=== PATIENT | male | born 1960 | race Caucasian/White ===

== ENCOUNTER → 2016-12-31 | Outpatient (CLI) | payer MEDICARE, MEDICAID ==
[2016-12-31 09:05] LABS: BASO % 0.5 % (0.0-1.0); EOS % 0.7 % (0.0-3.0); LYMPH % 26.5 % (24.0-44.0); MEAN CORPUSCULAR HEMOGLOBIN 31.1 pg (27.0-33.0); MEAN CORPUSCULAR HGB CONC 32.6 g/dl (32.0-36.5); MEAN CORPUSCULAR VOLUME 95.2 fl (80.0-96.0); MONO # 0.4 K/mm3 (0.0-0.8); MONO % 4.8 % (0.0-5.0); NEUTROPHILS # 5.1 K/mm3 (1.8-7.7); RED CELL DISTRIBUTION WIDTH 12.3 % (11.5-14.5); WHITE BLOOD COUNT 7.7 K/mm3 (4.0-10.0)
[2016-12-31 09:45] LABS: ALBUMIN 3.8 GM/DL (3.2-5.2); ALBUMIN/GLOBULIN RATIO 1.23 (1.00-1.93); ALKALINE PHOSPHATASE 65 U/L (45-117); ALT/SGPT 43 U/L (12-78); ANION GAP 6 MEQ/L (8-16); AST/SGOT 28 U/L (15-37); BILIRUBIN,TOTAL 0.6 MG/DL (0.2-1.0); BLOOD UREA NITROGEN 10 MG/DL (7-18); CALCIUM LEVEL 9.2 MG/DL (8.5-10.1); CARBON DIOXIDE LEVEL 30 MEQ/L (21-32); CHLORIDE LEVEL 102 MEQ/L (98-107); CHOLESTEROL LEVEL 241 MG/DL (<200); CREATININE FOR GFR 0.86 MG/DL (0.70-1.30); GLOMERULAR FILTRATION RATE > 60.0 (>56); GLUCOSE, FASTING 104 MG/DL (70-105); POTASSIUM SERUM 4.7 MEQ/L (3.5-5.1); SODIUM LEVEL 138 MEQ/L (136-145); TOTAL PROTEIN 6.9 GM/DL (6.4-8.2); TRIGLYCERIDES LEVEL 64 MG/DL (<150)
== END ==
LOC: M LAB 08:28
PROVIDERS: ATTEND Physician Assistant Medical
DX: Z79.899 Other long term (current) drug therapy (principal); E55.9 Vitamin D deficiency, unspecified; I10 Essential (primary) hypertension

== ENCOUNTER → 2017-03-09 | Outpatient (CLI) | payer MEDICARE, MEDICAID ==
[2017-03-09 10:43] LABS: ANION GAP 6 MEQ/L (8-16); BLOOD UREA NITROGEN 13 MG/DL (7-18); CALCIUM LEVEL 9.4 MG/DL (8.5-10.1); CARBON DIOXIDE LEVEL 30 MEQ/L (21-32); CHLORIDE LEVEL 102 MEQ/L (98-107); CREATININE FOR GFR 0.92 MG/DL (0.70-1.30); GLOMERULAR FILTRATION RATE > 60.0 (>56); GLUCOSE, FASTING 92 MG/DL (70-105); POTASSIUM SERUM 4.4 MEQ/L (3.5-5.1); SODIUM LEVEL 138 MEQ/L (136-145)
--- NOTE | 2017-03-09 11:08 | REP ---
REASON: manager terminal pharmacologic therapy. COMPARISON: 11/26/2014. FINDINGS: The superior mediastinal structures are midline. The cardiac silhouette is unremarkable in size, shape, and position. The diaphragmatic surfaces of the lungs are regular, and the costophrenic angles are clear. The pulmonary villanueva are clear. The imaged osseous structures are intact. IMPRESSION: There is no acute cardiopulmonary disease. No significant change from the prior exam. Signed by Jhonny Pereira DO 03/09/2017 01:45 P
== END ==
LOC: M LAB 09:20
PROVIDERS: ATTEND Orthopaedic Surgery
DX: Z79.899 Other long term (current) drug therapy (principal)

== ENCOUNTER → 2018-07-11 | Outpatient (CLI) | payer MEDICARE, MEDICAID ==
[2018-07-11 11:14] LABS: BASO # 0.1 10^3/uL (0.0-0.2); BASO % 0.7 % (0.0-1.0); EOS # 0.1 10^3/uL (0.0-0.50); EOS % 0.7 % (0.0-3.0); HEMOGLOBIN 15.8 g/dl (13.5-17.5); IMMATURE GRANULOCYTE % 0.3 % (0-3.0); LYMPH # 2.4 10^3/uL (1.5-4.5); MEAN CORPUSCULAR HEMOGLOBIN 31.9 pg (27.0-33.0); MEAN CORPUSCULAR HGB CONC 34.3 g/dl (32.0-36.5); MEAN CORPUSCULAR VOLUME 92.9 fl (80.0-96.0); MONO # 0.5 10^3/uL (0.0-0.8); MONO % 6.4 % (0.0-5.0); NEUTROPHILS # 4.3 10^3/uL (1.8-7.7); NEUTROPHILS % 58.9 % (36.0-66.0); PLATELET COUNT, AUTOMATED 277 10^3/uL (150-450); RED BLOOD COUNT 4.95 10^6/uL (4.30-6.10); RED CELL DISTRIBUTION WIDTH 12.4 % (11.5-14.5); WHITE BLOOD COUNT 7.3 10^3/uL (4.0-10.0)
[2018-07-11 17:49] LABS: ALBUMIN 3.8 GM/DL (3.2-5.2); ALBUMIN/GLOBULIN RATIO 1.15 (1.00-1.93); ALKALINE PHOSPHATASE 70 U/L (45-117); ALT/SGPT 77 U/L (12-78); ANION GAP 7 MEQ/L (8-16); AST/SGOT 47 U/L (7-37); BILIRUBIN,TOTAL 0.7 MG/DL (0.2-1.0); BLOOD UREA NITROGEN 8 MG/DL (7-18); CALCIUM LEVEL 9.2 MG/DL (8.5-10.1); CARBON DIOXIDE LEVEL 28 MEQ/L (21-32); CHLORIDE LEVEL 102 MEQ/L (98-107); CHOLESTEROL LEVEL 242 MG/DL (<200); CHOLESTEROL RISK RATIO 3.457 (<5); CREATININE FOR GFR 0.91 MG/DL (0.70-1.30); GLOMERULAR FILTRATION RATE > 60.0 (>56); GLUCOSE, FASTING 92 MG/DL (70-100); HDL CHOLESTEROL 70 MG/DL (>40); LDL CHOLESTEROL 157 MG/DL (<100); NON-HDL-C 172 MG/DL; POTASSIUM SERUM 4.7 MEQ/L (3.5-5.1); SODIUM LEVEL 137 MEQ/L (136-145); TOTAL PROTEIN 7.1 GM/DL (6.4-8.2); TRIGLYCERIDES LEVEL 75 MG/DL (<150)
== END ==
LOC: M LAB 10:34
DX: I11.9 Hypertensive heart disease without heart failure (principal)
CPT/HCPCS: 80053

== ENCOUNTER → 2019-07-13 | Outpatient (CLI) | payer MEDICARE, MEDICAID ==
--- NOTE | 2019-07-13 14:50 | REP ---
REASON: Assess inguinal regions. Multiple ultrasonographic images of the inguinal region was obtained bilaterally and shows no evidence of a mass or other abnormality. When scanning the right inguinal region note was made of a large right hydrocele. For further information review the scrotal ultrasound report of 07/13/2019. Electronically Signed by Jhonny Pereira DO 07/13/2019 04:21 P
--- NOTE | 2019-07-13 21:36 | REP ---
SCROTAL ULTRASOUND: Real-time sonographic evaluation of the scrotum and contents performed. Testicles are normal in size and echotexture, with no mass or torsion. Blood flow is seen in each testicle with duplex Doppler evaluation. Right testicle measures 4.2 x 2.7 x 2.1 cm and left testicle 4.3 x 2.8 x 2.1 cm. Right epididymis is not well visualized due to very large right hydrocele. Left epididymis appears unremarkable. The right hydrocele measures approximately 12.4 x 5.1 x 5.5 cm. There is a small cyst in the right testicle measuring 4 x 5 x 6 mm. There is a very small left hydrocele. IMPRESSION: Very large right hydrocele. No testicular mass or torsion. Electronically Signed by Chang Craig MD 07/14/2019 03:34 P
== END ==
LOC: M RAD 10:44
PROVIDERS: ATTEND Surgery
DX: D40.11 Neoplasm of uncertain behavior of right testis (principal)

== ENCOUNTER → 2019-08-18 | Outpatient (CLI) | payer MEDICARE, MEDICAID ==
[2019-08-18 09:09] LABS: HEMATOCRIT 46.7 % (42.0-52.0); HEMOGLOBIN 15.2 g/dl (13.5-17.5); MEAN CORPUSCULAR HEMOGLOBIN 31.3 pg (27.0-33.0); MEAN CORPUSCULAR HGB CONC 32.5 g/dl (32.0-36.5); MEAN CORPUSCULAR VOLUME 96.3 fl (80.0-96.0); PLATELET COUNT, AUTOMATED 296 10^3/uL (150-450); RED BLOOD COUNT 4.85 10^6/uL (4.30-6.10); WHITE BLOOD COUNT 9.6 10^3/uL (4.0-10.0)
--- NOTE | 2019-08-18 09:21 | REP ---
Clinical: Preoperative assessment . Comparison: 03/09/2017 . Technique: PA and lateral. Findings: The mediastinum and cardiac silhouette are normal. The lung villanueva demonstrate chronic changes without acute consolidation, effusion, or pneumothorax. The skeletal structures are intact and normal. Impression: 1. No acute cardiopulmonary process. Electronically Signed by Deshawn Gordillo MD 08/18/2019 09:14 A
[2019-08-18 09:27] LABS: INR 1.04; PROTHROMBIN TIME 13.3 SECONDS (11.8-14.0)
[2019-08-18 09:28] LABS: PARTIAL THROMBOPLASTIN TIME 23.9 SECONDS (25.0-38.4)
[2019-08-18 09:32] LABS: BLOOD UREA NITROGEN 8 MG/DL (7-18); CALCIUM LEVEL 9.7 MG/DL (8.5-10.1); CARBON DIOXIDE LEVEL 30 MEQ/L (21-32); CHLORIDE LEVEL 104 MEQ/L (98-107); CREATININE FOR GFR 0.91 MG/DL (0.70-1.30); GLOMERULAR FILTRATION RATE > 60.0 (>56); GLUCOSE, FASTING 90 MG/DL (70-100); POTASSIUM SERUM 4.3 MEQ/L (3.5-5.1); SODIUM LEVEL 141 MEQ/L (136-145)
--- NOTE | 2019-08-18 22:19 | ECGEPIP ---
[facility] Test Date: 2019-08-18 Pat Name: SHARON QUICK Department: Room: - Gender: Male [employer]: MODE : 1960 Requested By: Walt RICHADRS Order Number: [id number] Reading MD: Dario Esposito Measurements Intervals [place] Rate: 106 P: 46 NE: 138 QRS: 32 QRSD: 93 T: 47 QT: 327 QTc: 435 Interpretive Statements SINUS TACHYCARDIA NONSPECIFIC T-WAVE ABNORMALITY ABNORMAL RHYTHM ECG 1 TRACING IN THE SYSTEM ON 12/16/2015 AT 10:23 A.M. AND IT REVEALED SINUS BRADYCARDIA AT 49 BEATS PER MINUTE Electronically Signed on 08-18-2019 22:19:16 EST by Dario Esposito
== END ==
LOC: M LAB 08:46
PROVIDERS: ATTEND Nurse Practitioner Family
DX: Z01.818 Encounter for other preprocedural examination (principal)

== ENCOUNTER 2019-08-27 08:37 | Day surgery (SDC) | payer MEDICARE, MEDICAID ==
[~2019-08-27] VITALS: Ht 170.2 cm; Wt 78.5 kg
[~2019-08-27 08:37] MED LIST: ADVA230A INH; COMBAER6 INH; HYDR25TAB PO; LISI-538 PO; MAPA500C PO; ceFAZolin SOD 2 GM in IV 1 EA IV ONE
[2019-08-27] MEDS ORDERED: BISO10TA10 PO (09:34)
[2019-08-27] MEDS ORDERED: AMLO25TA PO (09:34)
[2019-08-27] MEDS ORDERED: ATOR80TA59 PO (09:34)
[2019-08-27] MEDS ORDERED: VALS160T3 PO (09:34)
[2019-08-27] MEDS ORDERED: MIDAZOLAM INJ 2 MG/2 ML VIAL (J2250) As Ordered ONE (10:00)
[2019-08-27] MEDS ORDERED: fentaNYL 100 MCG/2 ML INJECTION (J3010) As Ordered ONE ×3 (10:00→11:36)
[2019-08-27] MEDS ORDERED: LIDOCAINE 2% INJ 100 MG/5 ML SYRINGE As Ordered ONE (10:00)
[2019-08-27] MEDS ORDERED: PROPOFOL 200 MG/20 ML VIAL As Ordered ONE ×2 (10:00→10:51)
[2019-08-27] MEDS ORDERED: LIDOCAINE 1% MDV 20ML VIAL As Ordered ONE (10:23)
[2019-08-27] MEDS ORDERED: BUPIVACAINE HCL 0.25% 10 ML VIAL As Ordered ONE (10:23)
[2019-08-27] MEDS ORDERED: BACITRACIN OINT 30GM As Ordered ONE (10:23)
[2019-08-27] MEDS ORDERED: dexameTHASONE 4 MG/ML 1ML VIAL (J1100) As Ordered ONE ×2 (10:53→12:36)
[2019-08-27] MEDS ORDERED: GLYCOPYRROLATE INJ 0.2 MG/ML 2 ML VIAL As Ordered ONE (10:59)
[2019-08-27] MEDS ORDERED: PHENYLephrine HCL 500 MCG/5 ML (100MCG/ML) SYRINGE (J2370) As Ordered ONE (11:02)
[2019-08-27] MEDS ORDERED: KETOROLAC 60 MG/2 ML VIAL (J1885) As Ordered ONE (11:06)
[2019-08-27] MEDS ORDERED: ONDANSETRON 4MG/2ML VIAL (J2405) As Ordered ONE (11:06)
[2019-08-27] MEDS ORDERED: VASOPRESSIN INJ 20 UNITS/ML VIAL As Ordered ONE (11:22)
[2019-08-27] MEDS ORDERED: ENDO5TAB PO (12:18)
[2019-08-27] MEDS ORDERED: PERCOCET 5MG/325MG TAB As Ordered ONE (12:31)
[2019-08-27] MEDS ORDERED: ONDANSETRON 4MG/2ML VIAL (J2405) IV PRN (12:45)
[2019-08-27] MEDS ORDERED: fentaNYL 100 MCG/2 ML INJECTION (J3010) IV PRN (12:45)
[2019-08-27] MEDS ORDERED: LR 1,000 ML IV SCH (12:45)
[2019-08-27] MEDS ORDERED: oxyCODONE 5MG TAB PO PRN (12:45)
--- NOTE | 2019-08-27 13:11 | RO ---
DATE OF PROCEDURE: 08/27/2019 PREPROCEDURE DIAGNOSIS: Right hydrocele. POSTPROCEDURE DIAGNOSIS: Right hydrocele. PROCEDURE: Right hydrocelectomy. SURGEON: Dr. Bj Smith CASTING CLEANER: None. ANESTHESIA: General. OPERATIVE INDICATIONS: This is a 59-year-old male with a large right hydrocele here for treatment. DESCRIPTION OF PROCEDURE: The patient was brought to the operating room and general anesthesia was induced. Prophylactic antibiotics were infused. He was then placed in supine position and prepped and draped in the usual sterile fashion. At this point, an approximately 4 cm transverse incision was made over the right hemiscrotum. We then dissected down to the scrotal wall layers. The testicle was then delivered outside of the right hemiscrotum while still inside the tunica vaginalis. The tunica vaginalis was then punctured and approximately 250 mL of simple clear fluid was drained from the hydrocele. The tunica vaginalis was then excised using electrocautery. We then oversewed the edges of the tunica vaginalis with a running 3-0 Vicryl suture. At this point, we checked for hemostasis and any areas of bleeding along the testicle and within the operative site was controlled with electrocautery. The testicle was then delivered back inside the right hemiscrotum in its normal anatomic position. At this point, the dartos muscles were closed with a running 2-0 Vicryl suture. The skin was closed with interrupted 2-0 chromic sutures. Dressings were then applied and this marked the conclusion of the procedure. The patient was then awakened from anesthesia and transported to the recovery room in stable condition. Estimated blood loss: 5 mL. Complications: None. Specimen: Right hydrocele sac. Plan: The patient will followup in the clinic in a few weeks for a postoperative visit.
[2019-08-27 13:30] VITALS: BP 166/73
[2019-08-27] MEDS ORDERED: PERCOCET 5MG/325MG TAB PO PRN (13:46)
== END 2019-08-27 13:30 | disposition home or self-care (01) ==
LOC: M SDC 08:37
PROVIDERS: ATTEND Urology
DX: N43.3 Hydrocele, unspecified (principal)
CPT/HCPCS: 55040; 88302; J0690; J1100; J2250; J2370; J2405; J3010

== ENCOUNTER 2020-03-23 08:49 | Emergency (ER) | payer MEDICARE, MEDICAID ==
[~2020-03-23] VITALS: Ht 170.2 cm; Wt 81.8 kg
[~2020-03-23 08:49] MED LIST changes: +AMLO25TA PO; +ATOR80TA59 PO; +BISO10TA14 PO; +ENDO5TAB PO; +VALS160T3 PO; -ceFAZolin SOD 2 GM in IV 1 EA IV ONE
--- NOTE | 2020-03-23 09:20 | REP ---
Clinical: Trauma. Technique: AP, lateral, bilateral oblique views of the left first digit. Findings: Transverse fracture through the distal phalanx with overlying soft tissue swelling. Impression: Transverse fracture through the distal phalanx. Electronically Signed by Deshawn Gordillo MD 03/23/2020 09:12 A
[2020-03-23 09:57] VITALS: BP 138/88
[2020-03-23] MEDS ORDERED: ACETAMINOPH W/CODEINE #3 TAB UD PO ONE (10:00)
== END 2020-03-23 10:35 | disposition home or self-care (01) ==
LOC: M ED 08:49
DX: S62.522A Displaced fracture of distal phalanx of left thumb, initial encounter for closed fracture (principal); W22.09XA Striking against other stationary object, initial encounter; I11.9 Hypertensive heart disease without heart failure; J44.9 Chronic obstructive pulmonary disease, unspecified; E78.5 Hyperlipidemia, unspecified; F17.200 Nicotine dependence, unspecified, uncomplicated; K40.90 Unilateral inguinal hernia, without obstruction or gangrene, not specified as recurrent; Z79.51 Long term (current) use of inhaled steroids; Z79.899 Other long term (current) drug therapy

== ENCOUNTER → 2022-06-22 | Outpatient (CLI) | payer OTHER, MEDICAID ==
[~2022-06-22] MED LIST changes: +HYDR-3490 PO; -HYDR25TAB PO; -LISI-538 PO; +LISI20TA33 PO
[2022-06-22 10:13] LABS: BASO # 0.1 10^3/uL (0.0-0.2); BASO % 0.8 % (0.0-1.0); EOS # 0.2 10^3/uL (0.0-0.5); EOS % 2.7 % (0.0-3.0); HEMATOCRIT 48.3 % (42.0-52.0); HEMOGLOBIN 15.2 g/dl (13.5-17.5); LYMPH # 3.4 10^3/uL (1.5-5.0); LYMPH % 38.3 % (24.0-44.0); MEAN CORPUSCULAR HEMOGLOBIN 30.6 pg (27.0-33.0); MEAN CORPUSCULAR HGB CONC 31.5 g/dl (32.0-36.5); MEAN CORPUSCULAR VOLUME 97.4 fl (80.0-96.0); MONO # 0.4 10^3/uL (0.0-0.8); MONO % 4.8 % (2.0-8.0); NEUTROPHILS # 4.7 10^3/uL (1.5-8.5); NEUTROPHILS % 53.2 % (36.0-66.0); PLATELET COUNT, AUTOMATED 319 10^3/uL (150-450); RED BLOOD COUNT 4.96 10^6/uL (4.30-6.10); WHITE BLOOD COUNT 8.8 10^3/uL (4.0-10.0)
[2022-06-22 10:54] LABS: BLOOD UREA NITROGEN 11 MG/DL (7-18); CALCIUM LEVEL 9.9 MG/DL (8.8-10.2); CARBON DIOXIDE LEVEL 29 MEQ/L (21-32); CHLORIDE LEVEL 105 MEQ/L (98-107); CHOLESTEROL LEVEL 230 MG/DL (<200); CHOLESTEROL RISK RATIO 4.181 (<5); CREATININE FOR GFR 0.91 MG/DL (0.70-1.30); GLOMERULAR FILTRATION RATE > 60.0 (>49); GLUCOSE, FASTING 98 MG/DL (70-100); HDL CHOLESTEROL 55 MG/DL (>40); LDL CHOLESTEROL 150 MG/DL (<100); NON-HDL-C 175 MG/DL; PHOSPHORUS LEVEL 4.2 MG/DL (2.5-4.9); POTASSIUM SERUM 4.3 MEQ/L (3.5-5.1); SODIUM LEVEL 139 MEQ/L (136-145); TRIGLYCERIDES LEVEL 126 MG/DL (<150)
[2022-06-23 17:07] LABS: PSA TOTAL 0.6 ng/mL (0.0-4.0)
== END ==
LOC: M LAB 08:46
PROVIDERS: ATTEND Internal Medicine Cardiovascular Disease
DX: I10 Essential (primary) hypertension (principal); Z12.5 Encounter for screening for malignant neoplasm of prostate; J44.9 Chronic obstructive pulmonary disease, unspecified; E78.5 Hyperlipidemia, unspecified

== ENCOUNTER 2023-02-18 17:33 | Emergency (ER) | payer OTHER, MEDICAID ==
[~2023-02-18] VITALS: Ht 170.2 cm; Wt 84.9 kg
[2023-02-18 17:59] VITALS: TEMP 98.1
[2023-02-18 18:12] LABS: VENOUS BASE EXCESS -11.1 (-2.0-2.0); VENOUS HCO3 14.8 MMOL/L (23.0-27.0); VENOUS O2 SATURATION 93.1 % (60.0-80.0); VENOUS PARTIAL PRESSURE CO2 33.1 mmHg (38.0-50.0); VENOUS PARTIAL PRESSURE O2 68.9 mmHg (30.0-50.0); VENOUS PH 7.268 UNITS (7.330-7.430); VENOUS STANDARD HCO3 15.7 MMOL/L; VENOUS TOTAL CO2 15.8 MMOL/L (24.0-28.0)
[2023-02-18] MEDS ORDERED: THIAMINE 200MG 2ML VIAL IM ONE (18:20)
[2023-02-18] MEDS ORDERED: NS 1,000 ML IV ONE (18:20)
[2023-02-18 18:38] LABS: ETHYL ALCOHOL (ETHANOL) 0.212 % (0.000-0.010)
[2023-02-18 18:40] LABS: ALBUMIN 3.2 G/DL (3.2-5.2); ALKALINE PHOSPHATASE 46 U/L (46-116); ALT/SGPT 19 U/L (7.0-40); AST/SGOT 15 U/L (<34); BILIRUBIN,DIRECT 0.1 MG/DL (<0.4); BILIRUBIN,TOTAL 0.4 MG/DL (0.3-1.2); BLOOD UREA NITROGEN 11 MG/DL (9-23); CALCIUM LEVEL 6.9 MG/DL (8.3-10.6); CARBON DIOXIDE LEVEL 20 MMOL/L (20-31); CHLORIDE LEVEL 103 MMOL/L (98-107); CREATININE FOR GFR 1.05 MG/DL (0.70-1.30); GLOMERULAR FILTRATION RATE > 60.0 (>49); GLUCOSE, FASTING 103 MG/DL (74-106); MAGNESIUM LEVEL 1.5 MG/DL (1.8-2.4); POTASSIUM SERUM 3.2 MMOL/L (3.5-5.1); SODIUM LEVEL 135 MMOL/L (136-145); TOTAL PROTEIN 5.3 G/DL (5.7-8.2)
[2023-02-18 18:44] LABS: THYROID STIMULATING HORMONE 3.428 uIU/ML (0.55-4.78)
[2023-02-18] MEDS ORDERED: MAG SULF 1GM/100ML (MAG RUN) 1 GM in IV 1 EA IV ONE (18:45)
[2023-02-18] MEDS ORDERED: POTASSIUM CHLORIDE 10MEQ SR TABLET PO ONE (18:45)
[2023-02-18 18:47] LABS: OSMOLALITY SERUM 321 MOSM/KG (280-301)
[2023-02-18 19:03] LABS: BASO # 0.1 10^3/uL (0.0-0.2); BASO % 0.5 % (0.0-1.0); EOS # 0.1 10^3/uL (0.0-0.5); EOS % 0.7 % (0.0-3.0); HEMOGLOBIN 11.7 g/dl (13.5-17.5); LYMPH # 2.5 10^3/uL (1.5-5.0); LYMPH % 19.1 % (24.0-44.0); MEAN CORPUSCULAR HEMOGLOBIN 30.9 pg (27.0-33.0); MEAN CORPUSCULAR HGB CONC 33.4 g/dl (32.0-36.5); MEAN CORPUSCULAR VOLUME 92.3 fl (80.0-96.0); MONO # 0.4 10^3/uL (0.0-0.8); MONO % 3.3 % (2.0-8.0); NEUTROPHILS % 75.9 % (36.0-66.0); PLATELET COUNT, AUTOMATED 238 10^3/uL (150-450); RED BLOOD COUNT 3.79 10^6/uL (4.30-6.10); WHITE BLOOD COUNT 13.2 10^3/uL (4.0-10.0)
[2023-02-18 19:30] VITALS: BP 113/62
[2023-02-18 19:33] VITALS: O2SAT 97
[2023-02-18] MEDS ORDERED: MAGNESIUM OXIDE 400MG TAB (MAG-OX) PO ONE (19:35)
== END 2023-02-18 19:52 | disposition left against medical advice (07) ==
LOC: M ED 17:33
DX: S00.01XA Abrasion of scalp, initial encounter (principal); F10.129 Alcohol abuse with intoxication, unspecified; W19.XXXA Unspecified fall, initial encounter; E78.5 Hyperlipidemia, unspecified; J44.9 Chronic obstructive pulmonary disease, unspecified; I10 Essential (primary) hypertension; G40.909 Epilepsy, unspecified, not intractable, without status epilepticus; M54.50 Low back pain, unspecified; F17.200 Nicotine dependence, unspecified, uncomplicated; F12.10 Cannabis abuse, uncomplicated; Z79.02 Long term (current) use of antithrombotics/antiplatelets; Z79.52 Long term (current) use of systemic steroids; Z79.899 Other long term (current) drug therapy; Z53.9 Procedure and treatment not carried out, unspecified reason
CPT/HCPCS: 70450; 71045; 72125; 80047; 80048; 80076; 82077; 82140; 82330; 82803; 83735; 83930; 84443; 85025; 93005; 93041; 94760; 99285; J3411

== ENCOUNTER → 2023-09-21 | Outpatient (CLI) | payer MEDICARE, MEDICAID ==
[~2023-09-21] MED LIST changes: +ISOVUE-370 76% 100ML VIAL As Ordered ONE
== END ==
LOC: M RAD 13:07
PROVIDERS: ATTEND Internal Medicine Cardiovascular Disease
DX: I70.213 Atherosclerosis of native arteries of extremities with intermittent claudication, bilateral legs (principal); R09.89 Other specified symptoms and signs involving the circulatory and respiratory systems; I65.23 Occlusion and stenosis of bilateral carotid arteries
CPT/HCPCS: 75635; 93880; Q9967

== ENCOUNTER → 2023-10-07 | Outpatient (CLI) | payer MEDICARE, MEDICAID ==
[~2023-10-07] MED LIST changes: -ISOVUE-370 76% 100ML VIAL As Ordered ONE; +ISOVUE-370 76% 100ML VIAL ONE
== END ==
LOC: M PLAIMG 13:05
PROVIDERS: ATTEND Physician Assistant
DX: I65.23 Occlusion and stenosis of bilateral carotid arteries (principal)
CPT/HCPCS: 70496; 70498; Q9967

== ENCOUNTER 2023-12-24 08:48 | Emergency (ER) | payer MEDICARE, MEDICAID ==
[~2023-12-24 08:48] MED LIST changes: -ISOVUE-370 76% 100ML VIAL ONE
[2023-12-24 08:50] VITALS: BP 130/80; TEMP 101.8; O2SAT 99
== END 2023-12-24 10:08 | disposition left against medical advice (07) ==
LOC: M ED 08:48
DX: Z53.21 Procedure and treatment not carried out due to patient leaving prior to being seen by health care provider (principal)

== ENCOUNTER → 2024-04-19 | Outpatient (CLI) | payer MEDICARE, MEDICAID | LOC: M RAD 09:33 | PROVIDERS: ATTEND Surgery Vascular Surgery | DX: I65.23 Occlusion and stenosis of bilateral carotid arteries (principal) ==

== ENCOUNTER → 2024-07-28 | Outpatient (CLI) | payer MEDICARE, MEDICAID ==
[2024-07-28 08:55] LABS: BASO # 0.1 10^3/uL (0.0-0.2); BASO % 0.9 % (0.0-1.0); EOS # 0.6 10^3/uL (0.0-0.5); EOS % 7.1 % (0.0-3.0); HEMATOCRIT 37.6 % (42.0-52.0); HEMOGLOBIN 12.1 g/dl (13.5-17.5); LYMPH % 38.7 % (24.0-44.0); MEAN CORPUSCULAR HEMOGLOBIN 31.4 pg (27.0-33.0); MEAN CORPUSCULAR HGB CONC 32.2 g/dl (32.0-36.5); MEAN CORPUSCULAR VOLUME 97.7 fl (80.0-96.0); MONO # 0.4 10^3/uL (0.0-0.8); NEUTROPHILS # 3.8 10^3/uL (1.5-8.5); PLATELET COUNT, AUTOMATED 298 10^3/uL (150-450); RED BLOOD COUNT 3.85 10^6/uL (4.30-6.10); WHITE BLOOD COUNT 7.9 10^3/uL (4.0-10.0)
[2024-07-28 09:16] LABS: HEMOGLOBIN A1c 5.9 % (4.0-6.0)
[2024-07-28 09:19] LABS: BILIRUBIN,TOTAL 0.3 MG/DL (0.3-1.2); CALCIUM LEVEL 10.2 MG/DL (8.3-10.6); CHOLESTEROL RISK RATIO 2.87 (<5); CREATININE FOR GFR 1.29 MG/DL (0.70-1.30); GLOMERULAR FILTRATION RATE 59.7 (>49); HDL CHOLESTEROL 37.6 MG/DL (>40); LDL CHOLESTEROL 45.6 MG/DL (<100); MAGNESIUM LEVEL 2.2 MG/DL (1.8-2.4); NON-HDL-C 70.4 MG/DL; PERCENT SATURATION 19.4 % (19.7-50.0); POTASSIUM SERUM 4.7 MMOL/L (3.5-5.1); TOTAL PROTEIN 7.4 G/DL (5.7-8.2)
[2024-07-28 09:20] LABS: TOTAL 25(OH) VITAMIN D 12.5 NG/ML (20.0-100.0)
[2024-07-28 09:21] LABS: FERRITIN 423.4 NG/ML (10.5-307.3); THYROID STIMULATING HORMONE 1.816 uIU/ML (0.55-4.78)
[2024-07-30 14:52] LABS: PSA FREE 0.5 ng/mL; PSA TOTAL 0.8 ng/mL (< OR = 4.0)
== END ==
LOC: M LAB 08:15
PROVIDERS: ATTEND Nurse Practitioner Adult Health
DX: E78.5 Hyperlipidemia, unspecified (principal); I10 Essential (primary) hypertension; Z12.5 Encounter for screening for malignant neoplasm of prostate; R53.83 Other fatigue; E55.9 Vitamin D deficiency, unspecified; J44.9 Chronic obstructive pulmonary disease, unspecified; M54.50 Low back pain, unspecified; Z79.899 Other long term (current) drug therapy

== ENCOUNTER → 2024-12-07 | Outpatient (CLI) | payer MEDICARE, MEDICAID | LOC: M RAD 14:18 | PROVIDERS: ATTEND Physician Assistant | DX: Z01.818 Encounter for other preprocedural examination (principal); I70.213 Atherosclerosis of native arteries of extremities with intermittent claudication, bilateral legs; Z48.812 Encounter for surgical aftercare following surgery on the circulatory system ==